=== PATIENT | female | born 1950 | race Caucasian/White ===

== ENCOUNTER 2016-11-07 09:20 | Outpatient (CLI) | payer OTHER ==
--- NOTE | 2016-11-07 11:20 | DIAGNOSTIC IMAGING REPORT ---
PROCEDURE: MR LTD LOWER EXT JOINT-LEFT INDICATION: OA LEFT KNEE (SALAZAR/NEPHEW PROTOCOL) Salazar and Nephew protocol for preop knee replacement. TECHNIQUE: Limited MRI of the knee was performed with high-resolution PD sagittal images. In addition, AP radiographs of the lower extremity were obtained with scanogram markers. Diagnostic interpretation is not provided. IMPRESSION: 1. Preoperative Salazar and Nephew protocol for knee prosthesis.
[2016-12-20] MEDS ORDERED: DICLOFENAC SODI50 MG PO (16:58)
[2016-12-20] MEDS ORDERED: MELOXICAM15 MG PO (17:00)
[2016-12-20] MEDS ORDERED: NORCO1 TA1 PO (17:01)
[2016-12-20] MEDS ORDERED: PREDNISONE5 MG PO (17:01)
[2016-12-20] MEDS ORDERED: TROSPIUM CHLORI60 MG PO (17:02)
[2016-12-20] MEDS ORDERED: METHOTREXATE2.5 MG PO (17:06)
[2016-12-20] MEDS ORDERED: FOSAMAX70 MG PO (17:08)
[2016-12-20] MEDS ORDERED: IBUPROFEN600 MG PO (17:10)
== END 2016-11-07 23:00 ==
LOC: MRI SRH 09:20
DX: Z01.818 Encounter for other preprocedural examination (principal)

== ENCOUNTER 2016-12-05 09:11 | Outpatient (CLI) | payer OTHER ==
--- NOTE | 2016-12-05 10:54 | DIAGNOSTIC IMAGING REPORT ---
PROCEDURE: XR CHEST 2 VIEW INDICATION: PRE SURGERY TECHNIQUE: PA and lateral views. COMPARISON: None. FINDINGS: Lungs are clear. Heart and mediastinum are normal. Thorax is normal. IMPRESSION: 1. Negative chest.
[2016-12-20] MEDS ORDERED: DICLOFENAC SODI50 MG PO (16:58)
[2016-12-20] MEDS ORDERED: MELOXICAM15 MG PO (17:00)
[2016-12-20] MEDS ORDERED: PREDNISONE5 MG PO (17:01)
[2016-12-20] MEDS ORDERED: NORCO1 TA1 PO (17:01)
[2016-12-20] MEDS ORDERED: TROSPIUM CHLORI60 MG PO (17:02)
[2016-12-20] MEDS ORDERED: METHOTREXATE2.5 MG PO (17:06)
[2016-12-20] MEDS ORDERED: FOSAMAX70 MG PO (17:08)
[2016-12-20] MEDS ORDERED: IBUPROFEN600 MG PO (17:10)
== END 2016-12-05 23:00 ==
LOC: LAB SRH 09:11
DX: Z01.810 Encounter for preprocedural cardiovascular examination (principal); Z01.811 Encounter for preprocedural respiratory examination; Z01.812 Encounter for preprocedural laboratory examination; M05.761 Rheumatoid arthritis with rheumatoid factor of right knee without organ or systems involvement
CPT/HCPCS: 90001; 90004; 90074; 90100; 90148; 90155; 90469; 91004; 91286; 94060; 95059; 95150

== ENCOUNTER 2016-12-25 06:25 | Inpatient (IN) | payer OTHER ==
--- NOTE | 2016-12-05 09:39 | HISTORY AND PHYSICAL ---
ADMITTED: 12/25/2016 CHIEF COMPLAINT: 1. Left knee pain. HISTORY OF PRESENT ILLNESS: The patient has rheumatoid arthritis as well some osteoarthritis and has had increasing pain in her left knee. She has been through all reasonable conservative treatment without success and continues to have marked pain. She says the pain was so bad yesterday that she just had to go home from work and could not continue her work and she walks with a marked limp because of the pain. She would like to have the knee replaced and is scheduled to have her surgery on December 25 of this year. MEDICAL/SURGICAL HISTORY: Past history is positive in that she also has had some problems with leg swelling. She has had a bladder suspension procedure, which was not truly successful. She does have a history of prior urinary tract infections, but is not aware of any at present and in the record it indicates also she had a fracture of her shoulder at one time. MEDICATIONS: She currently takes methotrexate but was instructed and is under the care of a clinical massage therapist who will have her stop taking that as of this week and she will not take any for the time from now on until the surgery and that for several weeks afterwards as well. She has taken variously meloxicam, Voltaren cream, diclofenac for pain and also takes prednisone 5 mg daily. ALLERGIES: 1. NO KNOWN ALLERGIES. SOCIAL HISTORY: She is a former smoker, but has not smoked for many years. FAMILY HISTORY: Positive for cancer and diabetes, but no history of anesthesia or bleeding problems. REVIEW OF SYSTEMS: She has not had loss of consciousness, seizure disorder, problems with balance, hearing or vision. She has no current cough, congestion, fever, chills, shortness of breath, or chest pain and does not have a history of chest pain. She has no nausea, vomiting, diarrhea, or blood in her stools and has had no dysuria or hematuria. She does have multiple musculoskeletal pains, primary the low back and left hip and both knees associated with her rheumatoid arthritis. She denies any other serious medical problems, including previous myocardial infarction or CVA and says her blood pressure was up today, but she is somewhat anxious, but she does not have a history of hypertension or diabetes. PHYSICAL EXAMINATION: HEENT: Shows her head to be normocephalic and atraumatic. Her eyes are clear. Hearing is grossly normal. CHEST: Symmetrical. HEART: Regular rate and rhythm. She does have a grade 2/6 systolic ejection murmur that is heard at the right second intercostal space. LUNGS: Clear to auscultation. ABDOMEN: Moderately obese, but there is no distention that is present EXTREMITIES: Knee exam, I will refer you to my previous clinic notes. IMPRESSION: 1. Arthritis associated with rheumatoid arthritis and affecting particularly the left knee. PLAN: A left knee replacement. I have explained where the incision would be, how the surgery would be performed. She has seen the knee prosthetic components. We talked at length about the risk of infection, of stiffness, of ongoing pain, of need for further surgery, of failure of problems with wound healing, of anesthesia complications, of deep venous thrombosis and she understands and accepts. We would like to proceed with the surgery and we will plan to do it then 12/25/2016 barring unforeseen complication or problem.
[2016-12-25] VITALS (9 sets, daily range): BP systolic 115–137; BP diastolic 55–75
[~2016-12-25] VITALS: Ht 163.8 cm; Wt 118.0 kg
[~2016-12-25 06:25] MED LIST: DICLOFENAC SODI50 MG PO; FOSAMAX70 MG PO; IBUPROFEN600 MG PO; MELOXICAM15 MG PO; METHOTREXATE2.5 MG PO; NORCO1 TA1 PO; PREDNISONE5 MG PO; TROSPIUM CHLORI60 MG PO
--- NOTE | 2016-12-25 10:16 | Postoperative Progress Note ---
Postop Progress Note Preoperate Diagnosis: OA left knee Postoperative Diagnosis: Same Surgeon: Michael Chavez MD Anesthesia: General ETT Findings: OA left knee Procedure: Left TKA Complications? No Condition: Stable EBL: 250cc Blood Administered: 0 Specimen(s) removed? Yes Specimen removed/disposition: Bone and tissue left knee Grafts or Implants? Yes Graft/Implant type: Left TKA Salazar and Nephew Size 4 tibia and femur with 12mm tibial insert and 29mm patella. . (See nursing notes for details of grafts/implants)
--- NOTE | 2016-12-25 11:18 | DIAGNOSTIC IMAGING REPORT ---
PROCEDURE: XR KNEE 1 OR 2 VIEWS - RIGHT INDICATION: post-op right tka TECHNIQUE: Two-views COMPARISON: Bilateral knee films 06/28/2015 FINDINGS: The patient is status post a total knee replacement on the right. The components are in good position. IMPRESSION: 1. Status post right total knee replacement
--- NOTE | 2016-12-25 11:49 | OPERATIVE REPORT ---
DATE OF SURGERY: 12/25/2016 SURGEON: WAGNER JESUS MD PREOPERATIVE DIAGNOSIS: 1. Osteoarthritis, left knee POSTOPERATIVE DIAGNOSIS: 1. Osteoarthritis, left knee PROCEDURE PERFORMED: 1. The operation proposed was a left knee replacement. The operation performed was a left knee replacement. PATHOLOGY SPECIMEN: Bone and tissue, including the menisci, the anterior cruciate ligament, the major portion of the infrapatellar fat pad and the resected surfaces of the patella, distal femur and proximal tibia. SURGICAL TECHNIQUE: The patient was taken to the operating room on 12/25/2016, was given a general anesthetic, then a tourniquet applied to the left thigh. The leg was prepped and draped in the usual sterile fashion, and the patient had a longitudinal incision made directly anteriorly over the knee, carried down through subcutaneous tissue. A standard medial parapatellar approach to the knee was performed, the patella dislocated to the lateral side. She had exposure of the distal femur and the femoral cutting block from the [employer] was placed into position and pinned in place. We made the distal femoral cut and then placed a 5-in-1 cutting block in the holes in the distal femur and to made the anterior, posterior, and chamfer cuts. We then removed the remaining portion of the menisci. The medial meniscus was largely absent and pretty much had been ground away to powder. The lateral meniscus was removed in its entirety and the tibia exposed. We also removed the infrapatellar fat pad and the anterior cruciate ligament and with this then we had good exposure of the proximal tibia, put the tibial cutting block in place, pinned it in place, made the tibial cut and then put a #4 size tibial base plate in place and pinned it down in place and then made the drill hole for the central stem and the cut out for the fins with the supplied special instruments from the [employer] set. There were a few osteophytes along the medial side of the tibia, which were removed at this time as well and that we went through trial process putting the femoral component in place and the tibia with a 9 mm insert. With that, we could see we were going to have adequate stability and full range of motion and so I then went and made the remaining cut for the femoral sulcus and drilled the holes for the lugs in the femoral component and then removed the trial components, extended the knee, exsanguinated it, inflated the tourniquet to 350 mmHg, made the patellar cut, removing 9 mm of bone as measured with the calipers off the articular surface of the patella and then measuring it, it was found a 29 size and then made the drill holes for that and chamfered the margins medial and lateral so the patella was almost twice as wide as it is tall and so I chamfered the margins and then flexed the knee up again, cleaned the cut surfaces of the tibia and femur. Methylmethacrylate cement was vacuum mixed and applied to the backside of the #4 tibial base plate, the #4 femoral component and then more cement was injected down the hole for the stem on the tibial side and on the tibial cut surface and the tibial component was seated down in place and extruded cement removed from around the margins, more cement was placed on the cut surface of the femur and we placed the femoral component into place and seated it down into position and removed the extruded cement from around the margins, again put the #[address] and put the knee in extension and then cleaned out the cut surface of the patella and put more of the cement in the peg holes and on the cut surface of the patella and on the backside of the patellar component and seated it in place and put the clamp in place and left the knee in extension until the cement had hardened. We went back and removed a small amount of cement that had further extruded around the margins of the femoral component and checked the tracking of the patellar component and went through trialing process with first a 9 and then 11 and then 12 mm component. With the 12 mm component, she was very stable and there was full extension, full flexion easily possible. The patellar tracking was about as perfect as it could possibly be without any tendency to tilt or sublux at all and so we closed the parapatellar retinaculum with a combination of interrupted and running #2 nonabsorbable braided suture. The subcutaneous layer was closed with 2-0 Polysorb running suture and then the subcuticular skin closure was performed with a 3-0 Polysorb running suture. She was dressed with Xeroform, with ABD pads, wrapped with sterile Webril, and Raghu bandages loosely applied and then awakened and taken to the recovery room. She was in stable condition and the estimated blood loss about 250 mL. No complications encountered. The patient is stable and arrived in the recovery room in stable condition.
[2016-12-26 02:50] VITALS: BP 111/58
[2016-12-26 06:48] VITALS: BP 138/74
--- NOTE | 2016-12-26 08:27 | Progress Note ---
Subjective General VSS Afeb Hgb 9.3 WBC 9.0 FBS 145 Moderate pain, some rash with Dilaudid - switched to MS this am. She also had emesis x 1 this am and was given Zofran. No nausea now. She has been getting up and using the BR with assist. PT will jopefully start today. Check labs in am.
[2016-12-26 09:58] VITALS: BP 115/66
[2016-12-26 14:31] VITALS: BP 115/62
[2016-12-26 18:36] VITALS: BP 125/85
[2016-12-26 22:26] VITALS: BP 123/65
[2016-12-27 01:56] VITALS: BP 117/87
[2016-12-27 08:00] VITALS: BP 116/68
--- NOTE | 2016-12-27 08:06 | Progress Note ---
Subjective General VSS Afeb WBC 7.3 Hgb 8.1 NMV intact Doing well with PT. Wants to go home. Pain well cotrolled and no problem with using MS. DC home.
[2016-12-27] MEDS ORDERED: MS CONTIN15 MG PO (08:08)
[2016-12-27] MEDS ORDERED: PERCOCET1 TA1 PO (08:09)
--- NOTE | 2016-12-27 08:13 | Provider's Discharge Care Plan ---
Problem, Goal, Plan Problem List 1. Osteoarthritis of left knee 2. LEFT KNEE ARHTROPLASTY 3. Status post total left knee replacement
--- NOTE | 2016-12-27 08:13 | Provider's Discharge Care Plan ---
Problem, Goal, Plan Problem List 1. Osteoarthritis of left knee 2. LEFT KNEE ARHTROPLASTY 3. Status post total left knee replacement
--- NOTE | 2016-12-27 08:48 | DISCHARGE SUMMARY ---
ADMIT DATE: 12/25/2016 DISCHARGE DATE: 12/27/2016 DISCHARGE DIAGNOSIS: 1. Osteoarthritis of the knees BRIEF HISTORY: The patient had chronic knee pain had not been resolved with any conservative treatment and was admitted for knee replacement surgery. HOSPITAL COURSE: She had her knee replacement surgery done on the day of admission. Postoperatively, there were no serious complications. She did have a reaction to Dilaudid where she got a rash and had some nausea and vomiting, but once that was changed to morphine, then she was fine. By the day of her discharge, hemoglobin was 8.1. Her white count was 7.3. She was getting up to the bathroom with a walker without difficulty and wanted to be discharged to home. Her bandages were intact and dry and clean. Her sensation and motor function were intact. She was discharged to home then in stable condition on 12/27/2016. DISCHARGE INSTRUCTIONS/MEDICATIONS: The plan for her will be to take MS Contin 15 mg twice daily, and then she can take Percocet 1 or 2 tabs of the 5/325 strength every 4 hours as needed for breakthrough pain. She will take an aspirin pill 325 mg twice a day, and I explained to her how this helps to thin the blood, and I wanted her to get the aspirin and take it twice daily, which she agreed to. She will keep the bandages clean and dry and the incisions covered. She can walk with a walker and weightbearing as tolerated to the left lower extremity. She will return for followup in our office in a week's time. She will eat a carbohydrate-controlled diet. The condition at discharge is stable. The prognosis is good. The discharge status is home.
== END 2016-12-27 11:45 | disposition home or self-care (01) | DRG 470 ==
LOC: ACUTE2 SRH 06:25 → SCU SRH 06:25 → U SRH 07:30 → EDSTATUS 07:30 → ACUTE2 SRH 12:08
PROVIDERS: ADMIT Orthopaedic Surgery
PROC: 0SRD0J9 Replacement of Left Knee Joint with Synthetic Substitute, Cemented, Open Approach (ICD-10-PCS; principal; 2016-12-25 07:30)
DX: M17.12 Unilateral primary osteoarthritis, left knee (principal); M05.762 Rheumatoid arthritis with rheumatoid factor of left knee without organ or systems involvement; M05.761 Rheumatoid arthritis with rheumatoid factor of right knee without organ or systems involvement; L27.1 Localized skin eruption due to drugs and medicaments taken internally; R11.2 Nausea with vomiting, unspecified; T40.2X5A Adverse effect of other opioids, initial encounter

== ENCOUNTER 2017-01-03 13:33 | Outpatient (CLI) | payer OTHER ==
[~2017-01-03 13:33] MED LIST changes: +MS CONTIN15 MG PO; +PERCOCET1 TA1 PO
--- NOTE | 2017-01-03 14:24 | DIAGNOSTIC IMAGING REPORT ---
PROCEDURE: US VENOUS - LEFT EXT INDICATION: LT LEG PAIN,R/O DVT TECHNIQUE: Duplex sonography of the deep venous system in the left lower extremity was performed. Compression and augmentation techniques were used. COMPARISON: None. FINDINGS: Each interrogated segment of deep vein from the common femoral vein into the calf veins demonstrates normal compressibility, augmentation and/or color Doppler flow without filling defect. No evidence of significant soft-tissue edema, soft-tissue mass or cyst. IMPRESSION: 1. No deep venous thrombosis in the left lower extremity.
== END 2017-01-03 23:00 ==
LOC: US SRH 13:33
DX: M79.605 Pain in left leg (principal)

== ENCOUNTER 2017-03-08 12:44 | Emergency (ER) | payer OTHER ==
--- NOTE | 2017-03-08 14:14 | ED NURSING NOTES ---
Clinical Report - Nurses [facility] [address] [place] [address] 03/08/2017 12:45 Patient: LUCIA RUBIO TRIAGE Triage time 12:58 Zurdo 16 2016. Acuity: LEVEL 4. Chief Complaint: LEFT LOWER EXTREMITY PAIN. 13:10 03/08/17. Alert. No acute distress. ( Pain at worst 10/10). SEPSIS SCREEN: Sepsis Screen. Negative (no infection suspected/documented). RAVI COMA SCORE: Ravi Coma Scale: 15- eyes open spontaneously (4); best verbal response- oriented x 4 (5); best motor response- obeys commands (6). --13:10 Ashley Burkett 13:10 03/08/17. BP: 125/98. HR: 79. RR: 17. O2 saturation: 100%. Temp: 98.6 F. Pain level now 3/10. --13:10 Ashley Burkett. Weight: 107.5 kg stated. Height/Length: 64 inches Per Patient. BMI: 40.7. --13:09 Ashley Burkett. Medications Hydrocodone-Acetaminophen Oral (for arthritis). --13:05 Ashley Burkett Flexeril. --13:05 Ashley Burkett Naproxen Oral. --13:06 Ashley Burkett. Medication/allergy information source: the patient. --13:10 Ashley Burkett. Allergies None. --13:06 Ashley Burkett. History Arrived by private vehicle. Historian: patient. Accompanied by spouse. Primary physician (Gavin). No injury occurred. This occurred (Saturday). ( Pt reports that she had pain that started on Saturday and has been the same since. Went to urgent care, who thought it may be bursitis and told her to take naproxen, rest, and ice her hip. Pt states that pain hasn't gotten any worse. Has had a knee replacement this year. Pain shoots down leg and across back.). She has had swelling (preexisting). She has had trouble walking. Has had no redness. No fever. Treatment TANNING CONSULTANT: Ice and (rest and naproxen.). PAST MEDICAL HX: No history of diabetes mellitus, heart disease or hypertension. No history of deep vein thrombosis, infections or peripheral neuropathy. Tetanus status: up-to-date. Immunizations: up-to-date. Has had a hysterectomy. SOCIAL HX: Former smoker, end date 2001. Occasional alcohol use. No drug use. FALL RISK ASSESSMENT: Fall risk assessment completed. No fall risk identified. NUTRITIONAL RISK ASSESSMENT: The nutritional risk assessment revealed no deficiencies. FUNCTIONAL ASSESSMENT: Functional assessment: no impairments noted. LEARNING NEEDS ASSESSMENT: The learning needs assessment revealed no barriers. SKIN INTEGRITY ASSESSMENT: Skin integrity risk assessment completed. No skin integrity risk identified. --13:10 Ashley Burkett. PROBLEMS: Arthritis. --13:06 Ashley Burkett. ADDITIONAL SURGERIES: Cholecystectomy. . Hysterectomy. Knee replacement. --13:06 Ashley Burkett. Assessment The patient states feels the same. --13:10 Ashley Burkett. Interventions ID band on patient. --13:10 Ashley Burkett. PHYSICAL ASSESSMENT 13:11 03/08/17. To room via wheelchair. Patient gowned. GENERAL / NEURO / PSYCH: Oriented X 4. Alert. Appears in no acute distress. EXTREMITIES: Limited ROM present. Bilateral 1+ pitting edema of the lower extremities involving both feet, both ankles and both lower legs. Extremity pulses are within normal limits. Neuro-vascular status intact to the extremity. Left hip: tenderness. SKIN: Skin intact. Skin is warm and dry. --13:11 Ashley Burkett. NURSING PROGRESS NOTES 13:11 03/08/17. The plan of care for this patient has been created. Cold pack applied. Neuro-vascular extremity check. Patient gowned. Reassurance given. Two patient identifiers checked. Call light placed in reach. Side rails up x 1. Bed placed in lowest position. Brakes of bed on. Patient ready for evaluation- chart flagged and ED physician and HEAD ORTHOPEDIC TEAM PHYSICIAN notified. --13:11 Ashley Burkett. DISPOSITION / DISCHARGE 14:13 03/08/17. Departure time: 14:13 Mar 08 2017. The patient left the Emergency Department against medical advice and without completion of treatment; patient was accompanied by spouse. The patient appears to be in no acute distress. The patient notified the ED staff prior to leaving the department and stated is leaving the ED (states she has an insurance issue). Notified the charge nurse of patient departure. Prior to leaving the ED, she was advised to stay for completion of treatment and return if needed. She was informed of the risks of leaving and verbalized understanding of these risks. Patient signed form prior to leaving. She left the Emergency Department ambulatory and via private vehicle. ( Patient unwilling to stay for exams. X-ray reports that patient refused x-ray until she talked to her insurance. Then states that insurance was cancelled yesterday and she can't afford to stay. Pt was asked to stay for results and refused.). --14:13 Ashley Burkett 14:12 03/08/17. BP: deferred due to patient not present. HR: deferred due to patient not present. RR: deferred due to patient not present. O2 saturation: deferred due to patient not present. Temp: deferred due to patient not present. Pain level now deferred due to patient not present. --16:10 Ashley Burkett. Locked/Released at 03/08/2017 16:11 by Ashley Burkett,
--- NOTE | 2017-03-08 14:14 | ED CLINICAL REPORT ---
Clinical Report - Physicians/Mid Levels [facility] [address] [place] [address] 03/08/2017 12:45 Patient: LUCIA RUBIO Time Seen: 1320; initial patient contact, initial documentation, patient care assumed. Arrived- By private vehicle. Historian- patient. HISTORY OF PRESENT ILLNESS Chief Complaint: LOWER EXTREMITY PAIN. Severity is described as being severe. The quality is noted to be "pain". It is described as radiating to the right thigh. Modifying factors- worsened by standing and walking. Relieved by remaining still. This started about 2 months ago and is still present. It has been constant. Symptoms located in the area of the left hip. The patient has not had redness. No swelling, bladder dysfunction, bowel dysfunction, sensory loss or motor loss. She has had difficulty walking. It has been associated with pain in the right leg. No history of incontinence, affect changes, dizziness, recent trauma or headaches. No history of coordination problems. The patient has not had a shuffling gait. ( pt states she has had bunch of xrays of that lower extremity, before and after she had her knee replacement on 12/25, says when is not moving or standing, there is no pain, but when she moves or walks it hurts, and she wants to know what is wrong, she went to two providers already and no one can tell her anything, first she said she had not pain meds left, but questioned further, pt admitted to taking all the oxycodone already and she still had some hydrocodone left, but they only help the pain a little, pain is in R hip and shoots down leg and across lower back, pt states she already knows she has bad arthritis). Patient denies an injury. Similar symptoms previously: Chronically, as bad. Recent medical care: The patient was seen recently in the office and a clinic. ( went to pcp Dr Sequeira on Saturday for same thing, dx with bursitis, given flexeril, no better, went to UC on Sat, given naprosyn no better, now here). REVIEW OF SYSTEMS No chest pain, difficulty breathing, neck pain, back pain or abdominal pain. No vomiting or diarrhea. All systems otherwise negative, except as recorded above. PAST HISTORY See nurses notes. ( PROBLEMS: Arthritis. --13:06 Ashley Burkett. ADDITIONAL SURGERIES: Cholecystectomy. . Hysterectomy. Knee replacement. --13:06 Ashley Burkett.). SOCIAL HISTORY Former smoker. Occasional alcohol use. No drug use. No recent travel. Is a local resident. FAMILY HISTORY Negative. ADDITIONAL NOTES The nursing notes have been reviewed with agreement regarding the chief complaint, HPI, ROS, PMH and patient medications and allergies. PHYSICAL EXAM Vital Signs: 03/08/2017 13:10 BP: 125/98. HR: 79. RR: 17. O2 saturation: 100%. Temp: 98.6 F. Have been reviewed as abnormal and appear to be correct. Hypertensive. Heart rate normal. Respiratory rate normal. Temperature normal. Oxygen saturation normal. Appearance: Alert. Oriented X3. No acute distress. Eyes: Pupils equal, round and reactive to light. Eyes normal inspection. Neck: Normal inspection. Neck supple. CVS: Normal heart rate and rhythm. Heart sounds normal. Respiratory: No respiratory distress. Breath sounds normal. Abdomen: Soft and nontender. No organomegaly. (obese). Back: Normal inspection. No tenderness. ROM normal. Skin: Skin intact. Skin warm and dry. Normal skin color. Normal skin turgor. Extremities: Lower extremities exhibit normal ROM. No lower extremity edema. (pt walks with cane). Extremities otherwise negative. Gait: Abnormal gait. Gait not tested due to pain. Neuro: Oriented X 3. No motor deficit. No sensory deficit. PROGRESS AND PROCEDURES Course of Care: tx options discussed with doing xrays or not, since pt stated she already had lots of xrays, tx for bursitis, ice, heat, some rest, meds she is already taking, pt did not really like that plan of care, stating she was doing all that and nothing was getting rid of the pain pt has kenya for frequent high doses or narcs, last rx 02/13 #10 morphine 15mg, #21 oxycodone 5mg and #240 hydrocodone 5mg, and then again on 02/19 #100 oxycodone 5mg, see report for full details 1400. nurse reporting pt was leaving, stating her insurance was cancelled. Differential Diagnosis: I considered fracture, stress fracture, bone spur, bone contusion, aseptic necrosis, degenerative joint disease, rheumatoid arthritis, gout, pseudogout, sprain, soft tissue injury, myositis, fasciitis, tendonitis and bursitis as a possible cause of lower extremity pain in this patient. This is a partial list of diagnoses considered. (arthritis). Other possible considerations: substance abuse, chronic pain issues. Above considerations are based on history, physical exam, reassessment and X-Ray data. Differential diagnosis was discussed with patient. CLINICAL IMPRESSION Chronic left hip pain. INSTRUCTIONS (HTN). Warnings: GENERAL WARNINGS: Return or contact your physician immediately if your condition worsens or changes unexpectedly, if not improving as expected, or if other problems arise. Specifically return if problem worsens. Understanding of the discharge instructions verbalized by patient. (Electronically signed by Mica Keys A.R.N.P. 03/08/2017 14:20)
--- NOTE | 2017-03-08 14:14 | ED NURSING NOTES ---
Clinical Report - Nurses [facility] [address] [place] [address] 03/08/2017 12:45 Patient: LUCIA RUBIO TRIAGE Triage time 12:58 Zurdo 16 2016. Acuity: LEVEL 4. Chief Complaint: LEFT LOWER EXTREMITY PAIN. 13:10 03/08/17. Alert. No acute distress. ( Pain at worst 10/10). SEPSIS SCREEN: Sepsis Screen. Negative (no infection suspected/documented). RAVI COMA SCORE: Ravi Coma Scale: 15- eyes open spontaneously (4); best verbal response- oriented x 4 (5); best motor response- obeys commands (6). --13:10 Ashley Burkett 13:10 03/08/17. BP: 125/98. HR: 79. RR: 17. O2 saturation: 100%. Temp: 98.6 F. Pain level now 3/10. --13:10 Ashley Burkett. Weight: 107.5 kg stated. Height/Length: 64 inches Per Patient. BMI: 40.7. --13:09 Ashley Burkett. Medications Hydrocodone-Acetaminophen Oral (for arthritis). --13:05 Ashley Burkett Flexeril. --13:05 Ashley Burkett Naproxen Oral. --13:06 Ashley Burkett. Medication/allergy information source: the patient. --13:10 Ashley Burkett. Allergies None. --13:06 Ashley Burkett. History Arrived by private vehicle. Historian: patient. Accompanied by spouse. Primary physician (Gavin). No injury occurred. This occurred (Saturday). ( Pt reports that she had pain that started on Saturday and has been the same since. Went to urgent care, who thought it may be bursitis and told her to take naproxen, rest, and ice her hip. Pt states that pain hasn't gotten any worse. Has had a knee replacement this year. Pain shoots down leg and across back.). She has had swelling (preexisting). She has had trouble walking. Has had no redness. No fever. Treatment IT DESKTOP SUPPORT SPECIALIST: Ice and (rest and naproxen.). PAST MEDICAL HX: No history of diabetes mellitus, heart disease or hypertension. No history of deep vein thrombosis, infections or peripheral neuropathy. Tetanus status: up-to-date. Immunizations: up-to-date. Has had a hysterectomy. SOCIAL HX: Former smoker, end date 2001. Occasional alcohol use. No drug use. FALL RISK ASSESSMENT: Fall risk assessment completed. No fall risk identified. NUTRITIONAL RISK ASSESSMENT: The nutritional risk assessment revealed no deficiencies. FUNCTIONAL ASSESSMENT: Functional assessment: no impairments noted. LEARNING NEEDS ASSESSMENT: The learning needs assessment revealed no barriers. SKIN INTEGRITY ASSESSMENT: Skin integrity risk assessment completed. No skin integrity risk identified. --13:10 Ashley Burkett. PROBLEMS: Arthritis. --13:06 Ashley Burkett. ADDITIONAL SURGERIES: Cholecystectomy. . Hysterectomy. Knee replacement. --13:06 Ashley Burkett. Assessment The patient states feels the same. --13:10 Ashley Burkett. Interventions ID band on patient. --13:10 Ashley Burkett. PHYSICAL ASSESSMENT 13:11 03/08/17. To room via wheelchair. Patient gowned. GENERAL / NEURO / PSYCH: Oriented X 4. Alert. Appears in no acute distress. EXTREMITIES: Limited ROM present. Bilateral 1+ pitting edema of the lower extremities involving both feet, both ankles and both lower legs. Extremity pulses are within normal limits. Neuro-vascular status intact to the extremity. Left hip: tenderness. SKIN: Skin intact. Skin is warm and dry. --13:11 Ashley Burkett. NURSING PROGRESS NOTES 13:11 03/08/17. The plan of care for this patient has been created. Cold pack applied. Neuro-vascular extremity check. Patient gowned. Reassurance given. Two patient identifiers checked. Call light placed in reach. Side rails up x 1. Bed placed in lowest position. Brakes of bed on. Patient ready for evaluation- chart flagged and ED physician and SOFTWARE LICENSING SPECIALIST notified. --13:11 Ashley Burkett. DISPOSITION / DISCHARGE 14:13 03/08/17. Departure time: 14:13 Mar 08 2017. The patient left the Emergency Department against medical advice and without completion of treatment; patient was accompanied by spouse. The patient appears to be in no acute distress. The patient notified the ED staff prior to leaving the department and stated is leaving the ED (states she has an insurance issue). Notified the charge nurse of patient departure. Prior to leaving the ED, she was advised to stay for completion of treatment and return if needed. She was informed of the risks of leaving and verbalized understanding of these risks. Patient signed form prior to leaving. She left the Emergency Department ambulatory and via private vehicle. ( Patient unwilling to stay for exams. X-ray reports that patient refused x-ray until she talked to her insurance. Then states that insurance was cancelled yesterday and she can't afford to stay. Pt was asked to stay for results and refused.). --14:13 Ashley Burkett 14:12 03/08/17. BP: deferred due to patient not present. HR: deferred due to patient not present. RR: deferred due to patient not present. O2 saturation: deferred due to patient not present. Temp: deferred due to patient not present. Pain level now deferred due to patient not present. --16:10 Ashley Burkett. Locked/Released at 03/08/2017 16:11 by Ashley Burkett,
--- NOTE | 2017-03-08 14:15 | ED ORDER SUMMARY ---
..... Patient: LUCIA RUBIO OrderSheet [facility] VisitID: [id number] [address] [place] [address] 66y, F Registration Date/Time: 03/08/2017 ORDER SHEET Weight: 107.5 kg (stated) Allergies: None GENERAL ORDERS: Hip 2V Left w AP Pelvis Urgent (13:33 03/08/2017 HBivens A.R.N.P.) (Ack 14:05 OHernandez) (14:06 HBivens A.R.N.P.) (Cancelled: Patient Left14:06 HBivens A.R.N.P.) MEDICATION ORDERS: IV FLUIDS: ORDER SHEET NOTES: [Electronically signed by Mica Keys A.R.N.P. (14:20 03/08/2017)] [Electronically signed by Ashley Burkett (16:11 03/08/2017)] [Electronically locked/signed by Ashley Burkett (16:11 03/08/2017)]
--- NOTE | 2017-03-08 14:15 | ED ORDER SUMMARY ---
..... Patient: LUCIA RUBIO OrderSheet [facility] VisitID: [id number] [address] [place] [address] 66y, F Registration Date/Time: 03/08/2017 ORDER SHEET Weight: 107.5 kg (stated) Allergies: None GENERAL ORDERS: Hip 2V Left w AP Pelvis Urgent (13:33 03/08/2017 HBivens A.R.N.P.) (Ack 14:05 OHernandez) (14:06 HBivens A.R.N.P.) (Cancelled: Patient Left14:06 HBivens A.R.N.P.) MEDICATION ORDERS: IV FLUIDS: ORDER SHEET NOTES: [Electronically signed by Mica Keys A.R.N.P. (14:20 03/08/2017)] [Electronically signed by Ashley Burkett (16:11 03/08/2017)] [Electronically locked/signed by Ashley Burkett (16:11 03/08/2017)]
--- NOTE | 2017-03-08 16:11 | ED MED RECONCILIATION SUMMARY ---
Patient: MELLO RUBION Reji Medication Reconciliation Report [facility] VisitID: [id number] [address] [place] [address] 66y, F Registration Date/Time: 03/08/2017 Weight: 107.5 kg Height/Length: 64 in. BMI: 40.7 ALLERGIES: None The patient's Home Medications are listed below: THE FOLLOWING MEDICATIONS NEED TO BE RECONCILED: Flexeril Hydrocodone-Acetaminophen Oral, for arthritis Naproxen Oral The source(s) of the original Home Medication information: patient The following Medications were given to the patient in the Emergency Department: None. The following Medications were prescribed to the patient: None.
--- NOTE | 2017-03-08 16:11 | ED MAR SUMMARY ---
..... Medication Administration Record [facility] [address] [place], [place] [id number] Patient: RAMIRO LUCIA Mendoza Visit ID: [id number] 66y, F Weight: 107.5 kg Height/Length: 64 in BMI: 40.7 ALLERGIES: None
--- NOTE | 2017-03-08 16:11 | ED DISCHARGE INSTRUCTIONS ---
Patient: LUCIA RUBIO General Instructions [facility] VisitID: [id number] [place] [address] 66y, F Registration Date/Time: 03/08/2017 Chronic left hip pain. INSTRUCTIONS (HTN). Warnings: GENERAL WARNINGS: Return or contact your physician immediately if your condition worsens or changes unexpectedly, if not improving as expected, or if other problems arise. Specifically return if problem worsens. Understanding of the discharge instructions verbalized by patient. ADDITIONAL INFORMATION Myofascial Pain Syndrome: Fibrositis Your pain is caused by a state of chronic muscle tension. This condition is called by various names: myofascial pain, fibrositis and trigger point pain. This can also be due to mechanical stress (such as working at a computer terminal for long periods; or work that requires repetitive motions of the arms or hands) or emotional stress (such as problems on the job or in your personal life). Sometimes there is no obvious cause. The pain can occur in the area of the muscle spasm or at a site distant to it. For example, spasm of a neck muscle can cause headache. Spasm of the muscle near the shoulder blade can cause pain shooting down the arm. Home Care: Try to identify the factors that may be causing your problem and change them: If you feel thatemotional stressis a cause of your pain, learn methods to deal more effectively with the stress in your life. These may include regular exercise, muscle relaxation techniques, meditation or simply taking time out for yourself. Consult your doctor or go to a local bookstore and review the many books and tapes available on the subject of stress reduction. If you feel that physical stress is a cause for your pain, try to modify any poor work habits. You may use acetaminophen (Tylenol) or ibuprofen (Motrin, Advil) to control pain, unless another medicine was prescribed. [NOTE: If you have chronic liver or kidney disease or ever had a stomach ulcer or GI bleeding, talk with your doctor before using these medicines.] The use of heat to the muscle (hot compress or heating pad) will be helpful to reduce muscle spasm. Some persons get relief with ice packs. Apply an ice pack (crushed or cubed ice in a plastic bag, wrapped in a towel) for 20 minutes at a time as needed. Use the method that feels best to you. Massaging the trigger point and stretching out the muscleare an important parts of prevention and treatment. Trigger point massage can be done by first applying heat to the area to warm and prepare the muscle. Have someone apply steady thumb pressure directly on the knot in the muscle (the most tender point) for 30 seconds. Release the pressure, then massage the surrounding muscle. Repeat the process, applying more pressure to the trigger point each time. Do this up to the limit of pain. With each treatment, the trigger point should become less tender and the pain should decrease. You can apply local pressure to trigger points in the back by lying on the floor with a tennis ball under the trigger point. Follow Up with your doctor as advised or if not improving within the next week. It may be necessary for you to receive physical therapy if you do not respond to home treatment alone. Get Prompt Medical Attention if any of the following occur: If your trigger point is in the chest muscles, observe for pain that becomes more severe, lasts longer, or spreads into your shoulder/arm, neck or back; you develop trouble breathing, sweating, nausea or vomiting in association with chest pain If you develop weakness or numbness in an extremity If your pain worsens, regardless of its location Osteoarthritis Osteoarthritis (also called Degenerative Joint Disease) is the most common form of arthritis in adults over 50. It is not the same as Rheumatoid Arthritis. The exact cause is not known but may be related to excess wear and tear on the joint over a long period of time. Prior injury to that joint, or repeated stress on a joint can also cause this type of arthritis. Osteoarthritis most often affects the hands, knees, spine and hips (in that order). The most common symptoms are joint stiffness, pain and swelling. Home Care: When a joint is more sore than usual, rest that joint for a day or two. Heat is very helpful. This can be provided by taking hot baths, applying a heating pad for up to 30 minutes at a time. Because symptoms are usually worse in the morning, many patients like to take a hot bath just after awakening to relax the muscle and soothe the joints. Exercise is the most important part of home treatment for osteoarthritis. This prevents the muscles and ligaments around the joint from becoming weak and helps maintain the full range of joint motion. This limits further damage to the joint. If you are overweight, this puts a lot of extra strain on weight-bearing joints of the lower back, hips, knees, feet and ankles. Losing weight will improve your arthritis symptoms in these joints. Talk to your doctor about a safe and effective weight loss program for yourself. Anti-inflammatory medicine such as ibuprofen (Advil, Motrin) or naproxen (Aleve) is often used to treat this condition. If this alone is not helping, your doctor may prescribe a stronger medicine. If narcotic pain medicines have been prescribed, they should be used in addition to anti-inflammatory drugs and only for severe pain. Follow Up with your doctor as advised by our staff. Get Prompt Medical Attention if any of the following occur: Redness or swelling of a painful joint Fever of 100.4F (38C) or higher, or as directed by your healthcare provider Worsening joint pain You have been given the following additional information: Myofascial Pain Syndrome Osteoarthritis (Electronically signed by Mica Keys A.R.N.P. 03/08/2017 14:20)
--- NOTE | 2017-03-08 16:11 | ED MED RECONCILIATION SUMMARY ---
Patient: MELLO RUBION Reji Medication Reconciliation Report [facility] VisitID: [id number] [address] [place] [address] 66y, F Registration Date/Time: 03/08/2017 Weight: 107.5 kg Height/Length: 64 in. BMI: 40.7 ALLERGIES: None The patient's Home Medications are listed below: THE FOLLOWING MEDICATIONS NEED TO BE RECONCILED: Flexeril Hydrocodone-Acetaminophen Oral, for arthritis Naproxen Oral The source(s) of the original Home Medication information: patient The following Medications were given to the patient in the Emergency Department: None. The following Medications were prescribed to the patient: None.
--- NOTE | 2017-03-08 16:11 | ED MAR SUMMARY ---
..... Medication Administration Record [facility] [address] [place], [place] [id number] Patient: RAMIRO LUCIA Mendoza Visit ID: [id number] 66y, F Weight: 107.5 kg Height/Length: 64 in BMI: 40.7 ALLERGIES: None
== END 2017-03-08 14:14 | disposition left against medical advice (07) ==
LOC: ED SRH 12:44
DX: M25.552 Pain in left hip (principal); G89.29 Other chronic pain; Z79.891 Long term (current) use of opiate analgesic; Z79.1 Long term (current) use of non-steroidal anti-inflammatories (NSAID); Z79.899 Other long term (current) drug therapy; Z87.891 Personal history of nicotine dependence